=== PATIENT | female | born 1955 | race Caucasian/White ===

== ENCOUNTER 2017-07-31 10:46 | Outpatient (CLI) | payer OTHER ==
--- NOTE | 2017-07-31 12:59 | Ultrasound Report ---
Procedure Date: 07/31/2017 Accession Number: [id number] / [id number] Procedure: US - Head or Neck Soft Tissue CPT Code: FULL RESULT: EXAM: Head or Neck Soft Tissue DATE: 07/31/2017 11:23 AM CLINICAL HISTORY: FIRM ENLARGED LYMPH NODE TECHNIQUE: Ultrasound of the palpable abnormality in the left submandibular region. Real-time scanning, with asset protection representative static images obtained. COMPARISON: None FINDINGS: At the site of the palpable abnormality, there is a 1.3 x 0.7 x 0.4 cm submandibular lymph node. It demonstrates a normal fatty hilum. No suspicious findings are appreciated. IMPRESSION: Left submandibular lymph node, correlating with the palpable abnormality. It is normal in size, without suspicious findings.
== END 2017-07-31 10:47 | disposition home or self-care (01) ==
LOC: DI 10:46
PROVIDERS: ATTEND Naturopath
DX: R59.0 Localized enlarged lymph nodes (principal)
CPT/HCPCS: 76536

== ENCOUNTER 2018-03-12 15:47 | Emergency (ER) | payer OTHER ==
[2018-03-12 16:15] LABS: BILIRUBIN,URINE NEGATIVE (NEGATIVE); GLUCOSE, URINE (UA) NEGATIVE (NEGATIVE); KETONES,URINE (UA) 15 mg/dL (NEGATIVE); LEUKOCYTE ESTERASE, URINE MODERATE (NEGATIVE); NITRITE,URINE POSITIVE (NEGATIVE); OCCULT BLOOD,URINE SMALL (NEGATIVE); PROTEIN,URINE NEGATIVE (NEGATIVE); UROBILINOGEN,URINE 0.2 (NORMAL) E.U./dL (NORMAL)
[2018-03-12 16:16] LABS: CLARITY,URINE HAZY (CLEAR)
[2018-03-12 16:18] LABS: BASOPHILS # (AUTO) 0.1 10^3/uL (0.0-0.1); BASOPHILS % (AUTO) 0.7 %; EOSINOPHILS % (AUTO) 0.3 %; HGB - HEMOGLOBIN 12.7 g/dL (12.0-16.0); LYMPHOCYTES % (AUTO) 13.4 %; MEAN CORPUSCULAR HEMOGLOBIN 27.3 pg (27.0-31.0); MEAN CORPUSCULAR HGB CONC 34.2 g/dL (32.0-36.0); MEAN CORPUSCULAR VOLUME 79.6 fL (81.0-99.0); MONOCYTES # (AUTO) 1.2 10^3/uL (0.0-1.0); MONOCYTES % (AUTO) 7.9 %; NEUTROPHILS # (AUTO) 11.4 10^3/uL (1.5-6.6); NEUTROPHILS % (AUTO) 77.7 %; PLT - PLATELET COUNT 319 10^3/uL (130-450); RED BLOOD COUNT 4.65 10^6/uL (4.20-5.40); RED CELL DISTRIBUTION WIDTH 14.6 % (12.0-15.0); WHITE BLOOD COUNT 14.6 x10^3/uL (4.8-10.8)
[2018-03-12 16:21] LABS: BACTERIA,URINE Many /HPF (None Seen); RBC,URINE 0-5 /HPF (0-5); SQUAMOUS EPITHELIAL CELL,UR FEW Squamous (<= Few)
[2018-03-12 16:27] LABS: ALBUMIN 3.8 g/dL (3.2-5.5); ALBUMIN/GLOBULIN RATIO 0.9 (1.0-2.2); BILIRUBIN,TOTAL 0.5 mg/dL (0.2-1.0); CALCIUM 9.1 mg/dL (8.5-10.3); CREATININE 0.7 mg/dL (0.4-1.0)
[2018-03-12 16:38] LABS: INR 1.3 (0.8-1.2); PT - PROTHROMBIN TIME 14.9 secs (9.9-12.6)
--- NOTE | 2018-03-12 18:26 | ED Physician Documentation ---
PD HPI URI - Stated complaint Stated Complaint: SOA/COUGH - Chief complaint Chief Complaint: Fever - History obtained from History obtained from: Patient - History of Present Illness Timing - onset: How many days ago (3-5 days of cough and wheezing, worse breathing, fatigue.) Timing duration: Days (4-5) Timing details: Gradual onset, Still present Associated symptoms: Fever (today), Chills, Nasal congestion, Productive cough, Dyspnea. No: Sore throat, NVD Contributing factors: No: Sick contact, Travel Worsened by: Activity, Breathing Similar symptoms before: Diagnosis (asthma an bronchitis) Recently seen: Not recently seen Review of Systems Constitutional: reports: Fever, Chills, Myalgias Nose: reports: Congestion. denies: Rhinorrhea / runny nose Throat: denies: Sore throat Cardiac: denies: Chest pain / pressure, Palpitations, Pedal edema, Calf pain Respiratory: reports: Dyspnea, Cough, Wheezing GI: reports: Nausea. denies: Abdominal Pain, Vomiting, Diarrhea : denies: Dysuria, Frequency Skin: denies: Rash Musculoskeletal: reports: Back pain. denies: Neck pain Neurologic: reports: Generalized weakness. 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 HEENT: Tonsil/Adenoidectomy - Present Medications Home Medications: Ambulatory Orders Medication Instructions Recorded Confirmed Levothyroxine [Synthroid] 100 mcg PO QPM 03/12/18 03/14/18 Liothyronine [Cytomel] 20 mcg PO QPM 03/14/18 03/14/18 Levofloxacin [Levaquin] 750 mg PO DAILY #7 tablet 03/15/18 - Allergies Allergies/Adverse Reactions: Allergies Allergy/AdvReac Type Severity Reaction Status Date / Time Sulfa (Sulfonamide Allergy Unknown Verified 03/13/18 06:48 Antibiotics) nickel AdvReac Rash Verified 03/13/18 06:48 - Social History Does the pt smoke?: No Smoking Status: Never smoker Does the pt drink ETOH?: Yes Does the pt have substance abuse?: No - Family History Family history: reports: Non contributory - Immunizations Immunizations are current?: Yes PD ED PE NORMAL - Vitals Vital signs reviewed: Yes - General General: Alert and oriented X 3, Well developed/nourished, Other (appears ill and having wheezing with some prolonged exp phase. Able to talk sentences. ) - HEENT HEENT: Ears normal, Moist mucous membranes, Pharynx benign - Neck Neck: Supple, no meningeal sign, No adenopathy, No JVD - Cardiac Cardiac: RRR (tachy but regular), No murmur - Respiratory Respiratory: No respiratory distress. No: Clear bilaterally (diffuse wheezing without coarse sounds. ) - Abdomen Abdomen: Soft, Non tender - Female Female : Deferred - Rectal Rectal: Deferred - Back Back: No CVA TTP - Derm Derm: Normal color, No rash - Extremities Extremities: No deformity, No tenderness to palpate, Normal ROM s pain, No edema, No calf tenderness / cord - Neuro Neuro: Alert and oriented X 3, No motor deficit, Normal speech Results - Vitals Vitals: Oxygen O2 Source Room air - Labs Labs: Microbiology 03/12/18 16:09 Blood Culture - Preliminary Blood - Right Arm Escherichia Coli 03/12/18 16:12 Urine Culture - Final Urine,Clean Catch Escherichia Coli Laboratory Tests 03/12/18 03/12/18 03/12/18 16:09 16:09 16:09 WBC 14.6 H RBC 4.65 Hgb 12.7 Hct 37.0 MCV 79.6 L MCH 27.3 MCHC 34.2 RDW 14.6 Plt Count 319 MPV 7.0 L Neut # (Auto) 11.4 H Lymph # (Auto) 2.0 [place] # (Auto) 1.2 H Eos # (Auto) 0.0 Baso # (Auto) 0.1 Absolute Nucleated RBC 0.01 Nucleated RBC % 0.0 PT 14.9 H INR 1.3 H APTT 29.3 Sodium 130 L Potassium 3.5 Chloride 96 L Carbon Dioxide 24 Anion Gap 10.0 BUN 10 Creatinine 0.7 Estimated GFR (MDRD) 85 L Glucose 118 H Lactic Acid Calcium 9.1 Total Bilirubin 0.5 AST 23 ALT 31 Alkaline Phosphatase 75 Total Protein 8.0 Albumin 3.8 Globulin 4.2 Albumin/Globulin Ratio 0.9 L Lipase 29 Urine Color Urine Clarity Urine pH Ur Specific Beth[place] Urine Protein Urine Glucose (UA) Urine Ketones Urine Occult Blood Urine Nitrite Urine Bilirubin Urine Urobilinogen Ur Leukocyte Esterase Urine RBC Urine WBC Ur Squamous Epith Cells Urine Bacteria Ur Microscopic Review Urine Culture Comments 03/12/18 03/12/18 16:09 16:12 WBC RBC Hgb Hct MCV MCH MCHC RDW Plt Count MPV Neut # (Auto) Lymph # (Auto) [place] # (Auto) Eos # (Auto) Baso # (Auto) Absolute Nucleated RBC Nucleated RBC % PT INR APTT Sodium Potassium Chloride Carbon Dioxide Anion Gap BUN Creatinine Estimated GFR (MDRD) Glucose Lactic Acid 1.3 Calcium Total Bilirubin AST ALT Alkaline Phosphatase Total Protein Albumin Globulin Albumin/Globulin Ratio Lipase Urine Color YELLOW Urine Clarity HAZY Urine pH 6.0 Ur Specific [place] 1.015 Urine Protein NEGATIVE Urine Glucose (UA) NEGATIVE Urine Ketones 15 H Urine Occult Blood SMALL H Urine Nitrite POSITIVE H Urine Bilirubin NEGATIVE Urine Urobilinogen 0.2 (NORMAL) Ur Leukocyte Esterase MODERATE H Urine RBC 0-5 Urine WBC >25 H Ur Squamous Epith Cells FEW Squamous Urine Bacteria Many H Ur Microscopic Review INDICATED Urine Culture Comments INDICATED - Rads (name of study) chest xray Radiology: Prelim report reviewed (no infiltrates), EMP read contemporaneously, See rad report PD MEDICAL DECISION MAKING - ED course Complexity details: re-evaluated patient (still not feeling well but wheezing less after couple nebs, and sats/vitals are okay. Has bronchitis symptoms and wheezing. Consider viral vs bacterial but concern of bacterial given mostly cough symptoms and history of asthma. Also with UTI. Allergy to Sulfa. I would like to target the bronchitis with Doxy and should cover UTI as well, more than macrolide would. Improved breathing and vitals. I feel she is stable for discharge. ), considered differential (seems ill with mainly complaint of cough and wheezing, now fevers. ), d/w patient Departure - Departure Disposition: 01 Home, Self Care Clinical Impression: Exacerbation of asthma Bronchitis, acute Qualifiers: Bronchitis organism: unspecified organism Qualified Code(s): J20.9 - Acute bronchitis, unspecified UTI (urinary tract infection) Qualifiers: Urinary tract infection type: acute cystitis Hematuria presence: without hemat uria Qualified Code(s): N30.00 - Acute cystitis without hematuria Condition: Stable Record reviewed to determine appropriate education?: Yes Instructions: ED Bronchitis Asthmatic, ED UTI Cystitis Female Comments: Stay well-hydrated. Use albuterol inhaler 2-3 puffs 4 times a day and extra times as needed for cough and wheeze. Decadron steroid daily for 5 more days. Tessalon if needed for cough. Doxycycline antibiotic twice daily for 7-10 days. This is to treat the bronchitis and also to cover bladder infection. This should be adequate for both. Recheck if not improving over the next few days and return sooner if worsening. Tylenol if needed for fevers. Discharge Date/Time: 03/12/18 21:02
[2018-03-12] MEDS ORDERED: ALBUTEROL NEB 2.5 MG/3 ML INH STA ×2 (18:57→20:18)
[2018-03-12] MEDS ORDERED: DOXYCYCLINE 100 MG TABLET PO STA (18:58)
[2018-03-12] MEDS ORDERED: DEXAMETHASONE 10 MG/ML VIAL PO STA (18:58)
--- NOTE | 2018-03-12 19:07 | XRAY Report ---
Reason: cough Procedure Date: 03/12/2018 Accession Number: [id number] / [id number] Procedure: XR - Chest 1 View X-Ray CPT Code: 33573 FULL RESULT: EXAM: CHEST RADIOGRAPHY EXAM DATE: 03/12/2018 06:41 PM. CLINICAL HISTORY: Cough. COMPARISON: None. TECHNIQUE: 1 view. FINDINGS: Lungs/Pleura: No focal opacities evident. No pleural effusion. No pneumothorax. Mediastinum: Within exam limitations, the cardiomediastinal contour is normal. Other: Gastric lap band is not well seen. IMPRESSION: 1. No acute intrathoracic plain film abnormality. 2. Gastric lap band tubing is in place. The lap band itself is not well seen. RADIA
[2018-03-12 20:59] VITALS: BP 132/64
== END 2018-03-12 21:02 | disposition home or self-care (01) ==
LOC: ED 15:47
DX: J20.9 Acute bronchitis, unspecified (principal); N30.00 Acute cystitis without hematuria
CPT/HCPCS: 36415; 71045; 80053; 81001; 83605; 83690; 85025; 85610; 85730; 87040; 87077; 87086; 87181; 94640; 94664; 99283; 99284; A9270; 81003

== ENCOUNTER 2018-03-13 06:39 | Inpatient (IN) | payer OTHER ==
[2018-03-13] MEDS ORDERED: cefTRIAXone 1 GM in SODIUM CHLORIDE 0.9% MINIBAG 100 ML IV STA (07:21)
--- NOTE | 2018-03-13 07:23 | ED Physician Documentation ---
History of Present Illness - Stated complaint Stated Complaint: POSITIVE BLOOD CULTURE - Chief complaint Chief Complaint: General - History obtained from History obtained from: Patient - History of Present Illness Timing: How many days ago (6) - Additonal information Additional information: 62-year-old female with history of asthma and 3 failed procedures for urinary stress incontinence has developed cough congestion fever diaphoresis and weakness. She was seen in her doctor's office yesterday and sent to the hospital for evaluation. She was seen here in the emergency department by Dr. Coreas chest x-ray is obtained blood cultures and urinalysis. She did have urinary tract infection and no pneumonia on her chest x-ray. She is started on doxycycline today her blood cultures are positive she is been asked to come back to the hospital for admission to the hospital. Overnight the patient has remained weak and diaphoretic. Her fever is improved. Review of Systems Constitutional: reports: Fever, Chills, Myalgias, Fatigue Eyes: denies: Decreased vision Ears: denies: Ear pain Nose: reports: Congestion. denies: Rhinorrhea / runny nose Throat: denies: Sore throat Cardiac: denies: Chest pain / pressure, Palpitations Respiratory: reports: Dyspnea, Cough GI: denies: Abdominal Pain, Nausea, Vomiting : denies: Dysuria, Frequency Skin: denies: Rash Musculoskeletal: reports: Back pain. denies: Neck pain, Extremity pain Neurologic: reports: Generalized weakness. 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, Dilation and currettage HEENT: Tonsil/Adenoidectomy - Present Medications Home Medications: Ambulatory Orders Medication Instructions Recorded Confirmed Albuterol Sulf [Ventolin Hfa 2 - 3 puffs INH Q4HR PRN #1 inhaler 03/12/18 03/13/18 Inhaler] Benzonatate [Tessalon Perle] 100 - 200 mg PO TID PRN #30 capsule 03/12/18 03/13/18 Dexamethasone [Decadron] 4 mg PO DAILY #5 tablet 03/12/18 03/13/18 Doxycycline Hyclate 100 mg PO BID #20 capsule 03/12/18 03/13/18 Levothyroxine [Synthroid] 100 mcg PO QDAC 03/12/18 03/13/18 - Allergies Allergies/Adverse Reactions: Allergies Allergy/AdvReac Type Severity Reaction Status Date / Time Sulfa (Sulfonamide Allergy Unknown Verified 03/13/18 06:48 Antibiotics) nickel AdvReac Rash Verified 03/13/18 06:48 - Social History Does the pt smoke?: No Smoking Status: Never smoker Does the pt drink ETOH?: Yes Does the pt have substance abuse?: No - Immunizations Immunizations are current?: Yes - POLST Patient has POLST: No PD ED PE NORMAL - Vitals Vital signs reviewed: Yes (hypertensive ) - General General: Alert and oriented X 3, No acute distress, Well developed/nourished - HEENT HEENT: Atraumatic, PERRL, EOMI, Ears normal, Other (dry mucous membranes ) - Neck Neck: Supple, no meningeal sign, No bony TTP - Cardiac Cardiac: RRR, No murmur - Respiratory Respiratory: No respiratory distress, Clear bilaterally - Abdomen Abdomen: Soft, Non tender - Back Back: No CVA TTP, No spinal TTP - Derm Derm: Normal color, No rash, Other (Skin is clammy) - Extremities Extremities: No deformity, No edema - Neuro Neuro: Alert and oriented X 3, manager contract 2-12 intact, No motor deficit, No sensory deficit, Normal speech Eye Opening: Spontaneous Motor: Obeys Commands Verbal: Oriented GCS Score: 15 - Psych Psych: Normal mood, Normal affect Results - Vitals Vitals: Vital Signs - 24 hr 03/13/18 03/13/18 06:44 07:25 Temperature 36.4 C L Heart Rate 88 77 Respiratory 16 20 Rate Blood Pressure 145/87 H 126/76 O2 Saturation 98 95 Oxygen O2 Source Room air - Labs Labs: Laboratory Tests 03/13/18 03/13/18 03/13/18 07:13 07:13 07:13 WBC 12.3 H RBC 4.51 Hgb 12.8 Hct 36.5 L MCV 80.9 L MCH 28.3 MCHC 35.0 RDW 14.1 Plt Count 298 MPV 7.0 L Neut # (Auto) 10.6 H Lymph # (Auto) 1.2 L Gregory # (Auto) 0.5 Eos # (Auto) 0.0 Baso # (Auto) 0.1 Absolute Nucleated RBC 0.00 Nucleated RBC % 0.0 Sodium 139 Potassium 3.7 Chloride 106 Carbon Dioxide 23 Anion Gap 10.0 BUN 15 Creatinine 0.5 Estimated GFR (MDRD) 125 Glucose 250 H Lactic Acid 1.6 Calcium 9.7 Total Bilirubin 0.2 AST 21 ALT 31 Alkaline Phosphatase 74 Total Protein 8.0 Albumin 3.6 Globulin 4.4 H Albumin/Globulin Ratio 0.8 L Lipase 30 Procedures - IVC sono (time) 07 Bedside IVC sono: IVC measures (cm) (1.18), IVC collapsed c insp (cm) (complete), Dehydration (est 1 liter deficit) PD MEDICAL DECISION MAKING - ED course Complexity details: reviewed old records, reviewed results, re-evaluated patient, considered differential, d/w patient, d/w family ED course: 62-year-old female with a history of asthma and 3 failed bladder procedures has urinary tract infection and gram-negative bacilli in her blood. She has had improvement in her cough but she has not had improvement in her diaphoresis despite improvement in the fever. She does feel weak and worn out. On interrogation of the inferior vena cava she is about 1 L deficit and fluids and she is administered a liter of saline and a gram of Rocephin. Departure - Departure Disposition: 66 [facility] DC/Xfer Clinical Impression: UTI (urinary tract infection) Qualifiers: Urinary tract infection type: acute cystitis Hematuria presence: without hematuria Qualified Code(s): N30.00 - Acute cystitis without hematuria Sepsis Qualifiers: Sepsis type: sepsis due to unspecified organism Qualified Code(s): A41.9 - Sepsis, unspecified organism
[2018-03-13 07:24] LABS: BASOPHILS # (AUTO) 0.1 10^3/uL (0.0-0.1); BASOPHILS % (AUTO) 0.5 %; HGB - HEMOGLOBIN 12.8 g/dL (12.0-16.0); LYMPHOCYTES # (AUTO) 1.2 10^3/uL (1.5-3.5); LYMPHOCYTES % (AUTO) 9.8 %; MEAN CORPUSCULAR HEMOGLOBIN 28.3 pg (27.0-31.0); MEAN CORPUSCULAR VOLUME 80.9 fL (81.0-99.0); MONOCYTES # (AUTO) 0.5 10^3/uL (0.0-1.0); MONOCYTES % (AUTO) 3.7 %; NEUTROPHILS # (AUTO) 10.6 10^3/uL (1.5-6.6); PLT - PLATELET COUNT 298 10^3/uL (130-450); RED BLOOD COUNT 4.51 10^6/uL (4.20-5.40); RED CELL DISTRIBUTION WIDTH 14.1 % (12.0-15.0); WHITE BLOOD COUNT 12.3 x10^3/uL (4.8-10.8)
[2018-03-13 07:36] LABS: ALBUMIN 3.6 g/dL (3.2-5.5); ALBUMIN/GLOBULIN RATIO 0.8 (1.0-2.2); BILIRUBIN,TOTAL 0.2 mg/dL (0.2-1.0); CALCIUM 9.7 mg/dL (8.5-10.3); CREATININE 0.5 mg/dL (0.4-1.0)
[2018-03-13] MEDS ORDERED: SODIUM CHLORIDE FLUSH 0.9% 10 ML SYRINGE IVP PRN (08:27)
[2018-03-13] MEDS ORDERED: ONDANSETRON ODT 4 MG TABLET TL PRN (08:27)
[2018-03-13] MEDS ORDERED: IBUPROFEN 400 MG TABLET PO PRN (08:27)
[2018-03-13] MEDS ORDERED: ACETAMINOPHEN 325 MG TABLET PO PRN (08:27)
[2018-03-13] MEDS ORDERED: ONDANSETRON 4 MG/2 ML VIAL IVP PRN (08:27)
[2018-03-13] MEDS ORDERED: BENZONATATE 100 MG CAPSULE PO PRN (08:29)
[2018-03-13] MEDS ORDERED: ALBUTEROL NEB 2.5 MG/3 ML INH PRN (08:30)
[2018-03-13] MEDS ORDERED: SODIUM CHLORIDE 0.9% 1,000 ML IV ONE (08:33)
[2018-03-13] MEDS ORDERED: cefTRIAXone 1 GM in SODIUM CHLORIDE 0.9% MINIBAG 100 ML IV ONE (10:00)
[2018-03-13] MEDS: methylPREDNISolone SUCCINATE 40 MG/ML VIAL IVP SCH ×3 (10:43→21:08)
[2018-03-13] MEDS: SODIUM CHLORIDE 0.9% 1,000 ML IV SCH ×2 (10:44→20:32)
[2018-03-13] MEDS: POLYETHYLENE GLYCOL 3350 17 GM PACKET PO SCH (10:44)
[2018-03-13] MEDS: SODIUM CHLORIDE FLUSH 0.9% 10 ML SYRINGE IVP SCH ×2 (10:44→21:08)
--- NOTE | 2018-03-13 13:37 | HISTORY & PHYSICAL EXAMINATION ---
Chief Complaint - Chief Complaint Chief Complaint: fever and cough with rigors History of Present Illness - Admitted From Admitted From:: Home/ER - History Obtained From Records Reviewed: [facility] History obtained from: Patient, son and Dr. Chauhan Exam Limitations: none - History of Present Illness HPI Comment/Other: She is a 62-year-old morbidly obese female whose major medical issues are that of hypothyroidism and mild psoriasis but no problems with high blood pressure, diabetes, heart or lung. She does have asthma but it is so mild that she does not take any medications on a regular basis. The only time she starts wheezing and coughing is when she gets infections. Something like a cold or bronchitis or a flare in a UTI. She is and has had bladder repair surgery 3 times for cystocele repair. She gets frequent urinary tract infections but as long she takes d-mannose on a regular basis she does fine. Unfortunately she ran out a few months ago. Around December she developed a dry spot on the back of her throat. It almost felt like she would swallow and water was not even getting to the back of it. It caused an intermittent sporadic cough that was nonproductive. There was no fever, chills, chest congestion, postnasal drip. She then developed eustachian tube dysfunction as described by left ear fullness, feeling like she was under water, and severe tinnitus. She was initially diagnosed as having a left otitis media, and referred to ENT. ENT stated she did not have an ear infection, and that her eustachian tube was normal. However her tinnitus was continuing to bother her, as well as intermittent left ear fullness and she was referred to neurology after an MRI was done. The patient says that there is nothing wrong with her ear, but her eustachian tube was opacified according to the neurologist. Then last week, on top of all the above symptoms, she developed severe chest co ngestion, coughing. Started wheezing. Her usual temperature is 96-97 degrees so when she gets to 99 degrees its a fever. She is also prone to syncope. She has had vasovagal syncope all of her life. If she does not eat or drink enough, and stands for too long (usually in the morning shower) she has she will faint. Her vision will start to change, she gets nauseated and diaphoretic and will pa ss out if she does not sit down. She did that earlier this week with all of the above symptoms. She was finally so miserable with fatigue that she saw her primary care provider on March 12 and he sent her to the emergency room. In the emergency room yesterday her temperature was 38.2. Heart rate 107. 98% saturation with a blood pressure of 124/92. She was wheezing coughing, white cell count was 14.6. She appeared to respond to steroid injection, albuterol, and was started on doxycycline for empiric treatment of bronchitis. There was also a UTI present with positive leukocyte esterace, red cells, white cells, epithelial cells and bacteria. She was having intermittent rigors, sweats, and was just miserable. After returning to home, she went to bed. Had to change her sheets in her clothes twice because of the sweats. She was just getting ready to drift off back to sleep this morning when the emergency room called her to let her know that her blood cultures were positive with a gram-negative bacilli. Her urine cultures were positive for E. coli and to come back. Today, she received IV fluids in the emergency room. She was no longer tachycardic. IV ceftriaxone given. And a liter of wide open IV fluids with 40 mg of solumedrol. Her temperature was 36 4. I am now seeing her in her room after transfer from the emergency room and she says she feels so much better. She is weak and tired but the cough is almost gone, and the rigors have dissipated. She denies hemoptysis, sputum production. There is no diarrhea, abdominal or GI complaints associated with this. No new body rashes. When of her granddaughters and 1 of her sons was ill in the last week with the same viral prodrome. History - Past Medical History Cardiovascular: reports: None Respiratory: reports: Asthma (never intubated and not on steroids, short acting dilator once a year or so) Neuro: reports: Migraines Endocrine/Autoimmune: reports: HyPOthyroidism, Other (Reyna's thyroiditis, with hypothyroidism) GI: reports: None MANAGER FORMS: reports: Other ( with 1 C section, 1 D&C, 1 conization, dropped bladder and 3 bladder surgeries) : reports: Chronic bladder infection HEENT: reports: Chronic hearing loss (high frequency), Other (recent tinnitus an d more hearing loss left side, MRI neg for acoustic neuroma, but left eustachian tube opacified) Psych: reports: None Musculoskeletal: reports: None, Chronic back pain (with diskectomy and 3 level fusion lumbar spine) Derm: reports: Psoriasis (elbows, ear) MRSA Hx?: No - Past Surgical History General: reports: Cholecystectomy, Gastric surgery (failed lap band done in [place] 2006) Ortho: reports: Spine surgery /MANAGER FORMS: reports: section, Dilation and currettage, Other (breast biopsy) HEENT: reports: Tonsil/Adenoidectomy - Family & Social History Family History Comment/Other: Mom at age 64. She had renal cell carcinoma that was resected and did not require treatment. A few years later it all came back with diffuse metastatic disease and she at 63. Dad at age 75 of heart attack. Although her parents have been for years, they were still very close and he was heartbroken after her . One sister who is healthy except osteoarthritis. 6 children. Obesity, one son with Graves' disease and autoimmune disease present. Living arrangement: At home Living Situation: Alone Social History Notes: She started smoking at the age of 14 and stopped smoking around the age of 38. She smoked at most 1 pack/day. She would stop smoking when she was . She has no history of alcohol abuse. No history of sexually transmitted diseases. No history of use of any recreational substance. She has been twice, but she has children with 2 different fathers. She does not have a significant other at this time. She identifies her son, Antonio, is the person that she speak to as designated power of civil litigation attorney. She has not done this legally but she wishes to identify him as the person responsible. He is the son with her today. 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 - POLST Patient has POLST: No POLST Status: Full Code Meds/Allgy - Home Medications Home Medications: Ambulatory Orders Medication Instructions Recorded Confirmed Albuterol Sulf [Ventolin Hfa 2 - 3 puffs INH Q4HR PRN #1 inhaler 03/12/18 03/13/18 Inhaler] Benzonatate [Tessalon Perle] 100 - 200 mg PO TID PRN #30 capsule 03/12/18 03/13/18 Dexamethasone [Decadron] 4 mg PO DAILY #5 tablet 03/12/18 03/13/18 Doxycycline Hyclate 100 mg PO BID #20 capsule 03/12/18 03/13/18 Levothyroxine [Synthroid] 100 mcg PO QDAC 03/12/18 03/13/18 - Allergies Allergies/Adverse Reactions: Allergies Allergy/AdvReac Type Severity Reaction Status Date / Time Sulfa (Sulfonamide Allergy Unknown Verified 03/13/18 06:48 Antibiotics) nickel AdvReac Rash Verified 03/13/18 06:48 Review of Systems - Constitutional Constitutional: reports: Fatigue, Fever, Chills, Malaise, Poor appetite, Night sweats, Other (All in the last 4-5 days) - Eyes Eyes: denies: Pain, Irritation, Amaurosis, Blurred vision, Spots in vision, Field loss, Vision loss - Ears, Nose & Throat Ears, Nose & Throat: reports: Ear pain, Hearing loss, Tinnitus, Vertigo, Other (In the last 2 months). denies: Nosebleeds, Nasal obstruction, Nasal congestion, Postnasal drainage, Dentures, Sore throat, Hoarseness - Cardiovascular Cariovascular: reports: Syncope (Vasovagal all of her life. Last episode was earlier this week when she started getting sick. Standing in the shower. It usually happens in the shower. She will been dehydrated and not eating very well, get up in the morning to shower and she will pass out. Associated with vision change, sensation that sound is coming from far away, things get dark and then completely white out and she faints. It will take 20 minutes to recover and then she feels normal.). denies: Irregular heart rate, Palpitations, Chest pain, Edema, Lightheadedness, Exertional dyspnea, Decr. exercise tolerance - Respiratory Respiratory: reports: Cough (Since December off and on, definitely worse this week), Wheezing (Once or twice a year. Associated with her asthma. Does not even have an inhaler at home.). denies: Sputum production, Snoring, Hemoptysis, Orthopnea, SOB at rest, SOB with exertion, Apnea, Stridor - Gastrointestinal Gastrointestinal: denies: Abdominal pain, Abdominal distention, Constipation, Diarrhea, Change in bowel habits, Rectal bleeding, Bloody stools - Genitourinary Genitourinary: reports: Dysuria, Frequency, Urgency, Incontinence, Other (All of her symptoms are associated with UTIs that she has had several in the past. Last UTI was a year ago. She was not aware that she had any symptoms with this current episode.) - Musculoskeletal Musculoskeletal: reports: Back pain. denies: Muscle pain, Muscle aches, Stiffness, Muscle weakness, Gout, Joint pain - Integumentary Integumentary: reports: Rash (Psoriasis at the elbows, and the skin of her ears. Where her eustachian tube is opacified she has a patch of psoriasis right over it.) - Neurological Neurological: denies: General weakness, Focal weakness, Headache, Dizziness, Numbness, Memory problems, Pre-existing deficit, Abnormal gait - Psychiatric Psychiatric: denies: Depression, Anxiety, Suicidal - Endocrine Endocrine: denies: Polyuria, Polydypsia, Polyphagia - Hematologic/Lymphatic Hematologic/Lymphatic: denies: Anemia, Bruising Prior Level of Functionality: She is completely independent and lives in her own home. She drives a car, does her own laundry, cooks for herself, grocery shops, pays her own bills, etc. She is still very close to her children. She has 1 daughter and 5 sons. She speaks to her daughter several times a week. Her son, Antonio, lives in [place] and she is very close to him. She does have one son who lives on her property. Exam - Vital Signs Reviewed Vital Signs: Yes Vital Signs: Vital Signs x48h Temp Pulse Pulse Resp BP BP Pulse Ox 03/13/18 12:23 36.9 C 90 18 121/52 L 95 03/13/18 09:02 36.5 C 64 16 96 03/13/18 08:58 36.5 C 64 16 131/74 H 96 03/13/18 08:57 69 18 131/74 H 99 03/13/18 07:25 77 20 126/76 95 03/13/18 06:44 36.4 C L 88 16 145/87 H 98 - Physical Exam General Appearance: positive: No acute distress, Alert, Other (Moderately overweight middle-aged female with son at the bedside. She gives me permission to have him at the bedside while I take her history and examined her. Alert, back to her baseline she feels. She feels so much better.) Eyes Bilateral: positive: PERRL, EOMI ENT: positive: Pharynx nml Neck: positive: No JVD. negative: Stiff neck, Carotid bruit Respiratory: positive: Chest non-tender. negative: Wheezes, Rales, Rhonchi Cardiovascular: positive: Regular rate & rhythm, No murmur. negative: Gallop/S4, Friction rub Peripheral Pulses: positive: 1+ Abdomen: positive: Non-tender, No organomegaly, Nml bowel sounds, No distention Skin: positive: Warm, Dry Extremities: positive: Full ROM, No pedal edema Neurologic/Psychiatric: positive: Oriented x3, CN's nml (2-12), Motor nml, Sensation nml Sepsis Event Note (H) - Evaluation Current Stage of Sepsis: Resolved (She met sepsis criteria yesterday. Today white cell count is still greater than 12 but no fever, no tachycardia.) - Sepsis Criteria Sepsis Criteria: Recorded Temperature greater than 38.3C or Less than 36C, Recorded Heart Rate greater than 90 bpm, WBC count greater than 12,000 or less than 4000 Conclusion/Plan - Problem List (1) Sepsis secondary to UTI Conclusion/Plan: She met sepsis criteria yesterday. She had fever, tachycardia, elevated white cell count and a source of infection from urine. With antibiotics yesterday, IV fluids today, and new antibiotics today, her sepsis has resolved. She now remains a patient with bacteremia, and a urinary tract infection that needs to be treated. Lactic acid is normal, white cell count on his way down. No further fever. (2) E coli bacteremia Conclusion/Plan: From a UTI. She will be treated with IV Rocephin. Will adjust antibiotics on the basis of sensitivities. Since source is identified, she does not need 10 days of IV antibiotic therapy and can be sent home with an antibiotic that has good tissue penetration such as Levaquin. That will depend on the sensitivities we find. Repeat blood cultures have been done today. We will follow through on those. Continue to monitor for fever, white cell count. (3) Bronchitis, acute Conclusion/Plan: With acute exacerbation of asthma. Between yesterday and today she is received steroids, a dose of antibiotics, and today's treatment has also improved her tremendously. On current examination there is no wheezing. No increased respiratory effort. No hypoxia. Plan: Continue IV steroids for 3 more doses only Albuterol as needed Qualifiers: Bronchitis organism: unspecified organism Qualified Code(s): J20.9 - Acute bronchitis, unspecified (4) Full code status Conclusion/Plan: Advance care planning discussion performed. Please see dictation under separate note. - Lab Results Lab results reviewed: Yes Fish Bones: 03/13/18 07:13 03/13/18 07:13 Other Lab Results: Preliminary blood culture from March 12 ER encounter has gram-negative bacilli, positive for E. coli with conventional CARON's to follow. E. coli seen on urinary culture with sensitivities to follow. - Diagnostic Imaging Results Diagnostic Imaging Results: positive: Final report reviewed (Chest x-ray from March 12 has no acute infiltrate. Chest x-ray not to be repeated today.) Core Measures - Anticipated LOS I expect patient to be DC'd or transferred within 96 hours.: Yes - DVT/VTE - Prophylaxis VTE/DVT Device ordered at admit?: Yes
--- NOTE | 2018-03-13 15:25 | ADVANCE CARE PLANNING NOTE ---
Advance Care Planning - Date/Time Date: 03/13/18 Time: 15:11 - Purpose of encounter Text: Explore what she means by full CODE STATUS but to let her go if she is disabled - Parties in attendance Parties in attendance: Hospitalist, patient, her son who is a designated POA verbally - Decisional capacity Decisional capacity of: Patient is completely intact. She is completely independent, still working full-time. Her son has no disabilities. - Subjective/Patient's story Subjective/Patient's story: She is a 62-year-old female who is overweight and had a failed lap band surgery in [place] from 2006. 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 She is been and twice, and currently lives in her own home independently. One son lives on her property with his family. But she is very close to her son Antonio, who accompanies her today. He lives in [place]. They are getting ready to go to the [facility] in a week. She and Antonio are flying to [facility] and then from there to the [facility] to visit her daughter who is working in the [employer]. She regards herself as healthy. Has a strong suspicion of physicians and prefers to use a ND as her PCP. She has recently had problems with ringing in her left ear, a feeling of fullness and being "10 feet under water". She is exasperated because that led to a diagnosis of an ear infection in her PCP office, a referral to an ENT specialist who said she did not have ear infection. Because she continued to have tinnitus, left ear fullness, she then had an MRI looking for an acoustic neuroma and that was negative. She was then sent to a neurologist who asked if she was there to see him for dizziness and she said "no". The neurologist then went over her symptoms, showed her her MRI where she appears to have an opacified left eustachian tube. They attribute that to the psoriasis that she has on her ear and neck on that side of her body. She has been having a "dry tickle spot" in the back of her throat for over a month leading her to have an intermittent dry cough. But she did not feel ill. She denies symptoms of allergies. She then got sick with a very bad viral infection. She had coughing, chest congestion, wheezing. Her son and granddaughter had the same illness. She has a history of vasovagal syncope where if she gets too tired or dehydrated she will pass out. She passed out earlier this week. She finally saw her PCP because her temperature gone from 97 to 99. She is usually a temperature of 96-97 and 99 is a fever. Her PCP then referred her to the emergency room. In the emergency room she was identified as having acute bronchitis, a urinary tract infection. She was sent home on doxycycline, inhaler, and oral steroids to be tapered. She was called back to the emergency room because her blood cultures are positive. Since coming back, she is felt so much better after IV fluids and IV Rocephin and IV steroids. Her cough is almost completely gone. Now she just wants us to leave her alone to let her sleep. In going over history and physical we went over CODE STATUS and she says that she wants to be a full code. She has designated her son, Antonio, as her power of united states attorney. 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 She never wanted to end up like a resident that she took care of. That led to a castaneda discussion of the definition of what she wanted. The patient she took care of was a stroke patient who was completely dependent on care providers for feeding, dressing, changing her diaper, bathing her. Mrs. Cruz states she never wants to end up that way. That led to a conversation between she and her son about what that meant. If she has a reversible treatable illness that will result in a maintenance of her independence she wants everything done. If doctors have a reasonable expe ctation that she is going to be comatose, or have catastrophic loss of independence, to let her go. We then talked about that patient specifically. That unfortunate lady had a stroke, but did not . If that was her, did she want us to keep her alive? Her son protested and said that some stroke victims recover and he would want to give her the time to recover. So they then had a discussion about what it meant to recover. She states that if she had a stroke or any disabling illness that required her to be dependent on other people to take care of her, she did not want to live. They talked about 24-hour private hire care, or that her children could take turns taking care of her, and she was firmly opposed to this. So if she has a stroke or disabling disease that leaves her bedbound, unable to take care of herself, requiring other people to take care of her, we or her children can find care for her. If we have to place her in a facility temporarily that is fine. But if she develops something such as an infection, stroke, ND, to make her comfort measures only. We are not to treat her and we need to make her comfortable so she is not in pain or distress and let her go. She does not want to spend months or years of her life living that way. - Objective/Medical story Objective/Medical Story: She is a 62-year-old morbidly obese female whose major medical issues are that of hypothyroidism and mild psoriasis but no problems with high blood pressure, diabetes, heart or lung. She does have asthma but it is so mild that she does not take any medications on a regular basis. The only time she starts wheezing and coughing is when she gets infections. Something like a cold or bronchitis or a flare in a UTI. She is and has had bladder repair surgery 3 times for cystocele repair. She gets frequent urinary tract infections but as long she takes d-mannose on a regular basis she does fine. Unfortunately she ran out a few months ago. Around December she developed a dry spot on the back of her throat. It almost felt like she would swallow and water was not even getting to the back of it. It caused an intermittent sporadic cough that was nonproductive. There was no fever, chills, chest congestion, postnasal drip. She then developed eustachian tube dysfunction as described by left ear fullness, feeling like she was under water, and severe tinnitus. She was initially diagnosed as having a left otitis media, and referred to ENT. ENT stated she did not have an ear infection, and that her eustachian tube was normal. However her tinnitus was continuing to bother her, as well as intermittent left ear fullness and she was referred to neurology after an MRI was done. The patient says that there is nothing wrong with her ear, but her eustachian tube was opacified according to the neurologist. Then last week, on top of all the above symptoms, she developed severe chest congestion, coughing. Started wheezing. Her usual temperature is 96-97 degrees so when she gets to 99 degrees its a fever. She is also prone to syncope. She has had vasovagal syncope all of her life. If she does not eat or drink enough, and stands for too long (usually in the morning shower) she has she will faint. Her vision will start to change, she gets nauseated and diaphoretic and will pass out if she does not sit down. She did that earlier this week with all of the above symptoms. She was finally so miserable with fatigue that she saw her primary care provider on March 12 and he sent her to the emergency room. In the emergency room yesterday her temperature was 38.2. Heart rate 107. 98% saturation with a blood pressure of 124/92. She was wheezing coughing, white cell count was 14.6. She appeared to respond to steroid injection, albuterol, and was started on doxycycline for empiric treatment of bronchitis. There was also a UTI present with positive leukocyte esterace, red cells, white cells, epithelial cells and bacteria. She was having intermittent rigors, sweats, and was just miserable. After returning to home, she went to bed. Had to change her sheets in her clothes twice because of the sweats. She was just getting ready to drift off back to sleep this morning when the emergency room called her to let her know that her blood cultures were positive with a gram-negative bacilli. Her urine cultures were positive for E. coli and to come back. Today, she received IV fluids in the emergency room. She was no longer tachycardic. IV ceftriaxone given. And a liter of wide open IV fluids with 40 mg of solumedrol. Her temperature was 36 4. I am now seeing her in her room after transfer from the emergency room and she says she feels so much better. She is weak and tired but the cough is almost gone, and the rigors have dissipated. She denies hemoptysis, sputum production. There is no diarrhea, abdominal or GI complaints associated with this. No new body rashes. When of her granddaughters and 1 of her sons was ill in the last week with the same viral prodrome. 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: reports: Other ( with 1 C section, 1 D&C, 1 conization, dropped bladder and 3 bladder surgeries) : reports: Chronic bladder infection HEENT: reports: Chronic hearing loss (high frequency), Other (recent tinnitus and more hearing loss left side, MRI neg for acoustic neuroma, but left eustachian tube opacified) Psych: reports: None Musculoskeletal: reports: None, Chronic back pain (with diskectomy and 3 level fusion lumbar spine) Derm: reports: Psoriasis (elbows, ear) MRSA Hx?: No - Past Surgical History General: reports: Cholecystectomy, Gastric surgery (failed lap band done in [place] 2006) Ortho: reports: Spine surgery /ACCOUNTING ANALYST: reports: section, Dilation and currettage, Other (breast biopsy) HEENT: reports: Tonsil/Adenoidectomy - Family & Social History Family History Comment/Other: Mom at age 64. She had renal cell carcinoma that was resected and did not require treatment. A few years later it all came back with diffuse metastatic disease and she at 63. Dad at age 75 of heart attack. Although her parents have been for years, they were still very close and he was heartbroken after her . One sister who is healthy except osteoarthritis. 6 children. Obesity, one son with Graves' disease and autoimmune disease present. Living arrangement: At home Living Situation: Alone Social History Notes: She started smoking at the age of 14 and stopped smoking around the age of 38. She smoked at most 1 pack/day. She would stop smoking when she was . She has no history of alcohol abuse. No history of sexually transmitted diseases. No history of use of any recreational substance. She has been twice, but she has children with 2 different fathers. She does not have a significant other at this time. She identifies her son, Antonio, is the person that she speak to as designated power of united states attorney. She has not done this legally but she wishes to identify him as the person responsible. He is the son with her today. 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 - Goals of Care Goals of care determinations: As stated many times in this conversation, she wants to maintain complete independence and be able to take care of herself. It does not matter if she is in her own home, an assisted living facility, but she wants to maintain independence with regards to feeding herself and bathing herself. She does not want 24-hour care for her children taking care of her if she becomes disabled. Her goal is to be independent up until that time and if she is no longer independent to let her go and make her comfortable in her distress. - Plan Plan: At this time there is no change in our plastic move forward with treating her for her sepsis. She is to receive IV antibiotics, full treatment and if that means going to the ICU with pressors, etc. she wants that. I anticipate discharge in the next 2-3 days. I have encouraged her to please get up out of bed and ambulate in the room to maintain strength 10-minute discussion was held on DVT prophylaxis alone as she flies 12 hours to [facility] and then on to the [facility] especially in view of the fact that she has been sick with his cold and a UTI. On her wishes for a full CODE STATUS at this time, with transition to DO NOT RESUSCITATE only if the above conditions are met. - Code Status Code Status: Attempt Resuscitation - Time Spent on Advance Care Planning Time spent on advance care plannin minutes
[2018-03-14] MEDS: SODIUM CHLORIDE FLUSH 0.9% 10 ML SYRINGE IVP SCH ×4 (00:51→23:44)
[2018-03-14] MEDS: methylPREDNISolone SUCCINATE 40 MG/ML VIAL IVP SCH (06:24)
[2018-03-14 06:27] LABS: BASOPHILS % (AUTO) 0.1 %; HGB - HEMOGLOBIN 11.2 g/dL (12.0-16.0); LYMPHOCYTES # (AUTO) 1.6 10^3/uL (1.5-3.5); LYMPHOCYTES % (AUTO) 8.1 %; MEAN CORPUSCULAR HEMOGLOBIN 27.2 pg (27.0-31.0); MEAN CORPUSCULAR HGB CONC 33.4 g/dL (32.0-36.0); MEAN CORPUSCULAR VOLUME 81.4 fL (81.0-99.0); MEAN PLATELET VOLUME 7.3 fL (7.9-10.8); MONOCYTES # (AUTO) 0.9 10^3/uL (0.0-1.0); MONOCYTES % (AUTO) 4.3 %; NEUTROPHILS # (AUTO) 17.6 10^3/uL (1.5-6.6); NEUTROPHILS % (AUTO) 87.5 %; PLT - PLATELET COUNT 327 10^3/uL (130-450); RED BLOOD COUNT 4.13 10^6/uL (4.20-5.40); RED CELL DISTRIBUTION WIDTH 14.6 % (12.0-15.0); WHITE BLOOD COUNT 20.2 x10^3/uL (4.8-10.8)
[2018-03-14 06:36] LABS: CALCIUM 9.3 mg/dL (8.5-10.3); CREATININE 0.6 mg/dL (0.4-1.0)
[2018-03-14] MEDS ORDERED: ZOLPIDEM 5 MG TABLET PO PRN (06:54)
[2018-03-14] MEDS ORDERED: LEVOTHYROXINE 100 MCG TABLET PO SCH ×2 (07:00→21:00)
--- NOTE | 2018-03-14 07:57 | PROVIDER PROGRESS NOTE ---
Subjective - Prog Note Date Prog Note Date: 03/14/18 Prog Note Time: 16:30 - Subjective Subjective: doing well, feels great, had a shower. Current Medications - Current Medications Current Medications: Active Medications Acetaminophen (Tylenol) 650 mg PO Q4HR PRN PRN Reason: Pain 1 to 4 Albuterol () 2.5 mg INH RTQ4H PRN PRN Reason: Wheezing Benzonatate (Tessalon) 100 mg PO QID PRN PRN Reason: Cough Last Admin: 03/14/18 06:28 Dose: 100 mg Ceftriaxone Sodium 2 gm/ (Sodium Chloride) 100 mls @ 200 mls/hr IV DAILY REPLACED BY [facility] Ibuprofen (Motrin) 400 mg PO Q4HR PRN PRN Reason: Pain 1 to 4 Levothyroxine Sodium (Synthroid) 100 mcg PO QPM REPLACED BY [facility] Ondansetron HCl (Zofran Inj) 4 mg IVP Q6HR PRN PRN Reason: Nausea / Vomiting Ondansetron HCl (Zofran Odt) 4 mg TL Q6HR PRN PRN Reason: Nausea / Vomiting Polyethylene Glycol (Miralax) 17 gm PO DAILY REPLACED BY [facility] Last Admin: 03/13/18 10:44 Dose: Not Given Sodium Chloride (Normal Saline Flush 0.9%) 10 ml IVP PRN PRN PRN Reason: NEEDED PER PROVIDER ORDERS Sodium Chloride (Normal Saline Flush 0.9%) 10 ml IVP 0100,0900,1700 REPLACED BY [facility] Last Admin: 03/14/18 00:51 Dose: Not Given Zolpidem Tartrate (Ambien) 5 mg PO QPM PRN PRN Reason: Insomnia Levothyroxine [Synthroid] 100 mcg PO QPM 03/12/18 Liothyronine [Cytomel] 20 mcg PO QPM 03/14/18 Objective - Vital Signs/Intake & Output Reviewed Vital Signs: Yes Vital Signs: Vital Signs x48h Temp Pulse Resp BP Pulse Ox 03/14/18 07:47 36.6 C 78 18 132/65 H 97 03/14/18 00:00 36.6 C 71 18 118/54 L 96 Intake & Output: Intake & Output 03/11/18 03/12/18 03/13/18 03/14/18 23:59 23:59 23:59 23:59 Intake Total 2358.333 450 Balance 2358.333 450 - Objective General Appearance: positive: No acute distress, Alert Eyes Bilateral: positive: PERRL, EOMI ENT: positive: Pharynx nml Neck: positive: No JVD. negative: Stiff neck, Carotid bruit Respiratory: positive: Chest non-tender, No respiratory distress. negative: Wheezes, Rales, Rhonchi Cardiovascular: positive: Regular rate & rhythm. negative: Systolic murmur, Gallop/S4, Friction rub Abdomen: positive: Non-tender, No organomegaly, Nml bowel sounds, No distention Skin: positive: Warm, Dry Extremities: positive: Full ROM, No pedal edema Neurologic/Psychiatric: positive: Oriented x3, CN's nml (2-12), Motor nml - Lab Results Fish Bones: 03/14/18 06:07 03/14/18 06:07 Other Labs: Lab Results x24hrs 03/14/18 03/14/18 Range/Units 06:07 06:07 WBC 20.2 H (4.8-10.8) x10^3/uL RBC 4.13 L (4.20-5.40) 10^6/uL Hgb 11.2 L (12.0-16.0) g/dL Hct 33.6 L (37.0-47.0) % MCV 81.4 (81.0-99.0) fL MCH 27.2 (27.0-31.0) pg MCHC 33.4 (32.0-36.0) g/dL RDW 14.6 (12.0-15.0) % Plt Count 327 (130-450) 10^3/uL MPV 7.3 L (7.9-10.8) fL Neut # (Auto) 17.6 H (1.5-6.6) 10^3/uL Lymph # (Auto) 1.6 (1.5-3.5) 10^3/uL [place] # (Auto) 0.9 (0.0-1.0) 10^3/uL Eos # (Auto) 0.0 (0.0-0.7) 10^3/uL Baso # (Auto) 0.0 (0.0-0.1) 10^3/uL Absolute Nucleated RBC 0.01 x10^3/uL Nucleated RBC % 0.0 /100WBC Sodium 143 (135-145) mmol/L Potassium 4.0 (3.5-5.0) mmol/L Chloride 109 (101-111) mmol/L Carbon Dioxide 24 (21-32) mmol/L Anion Gap 10.0 (6-13) BUN 16 (6-20) mg/dL Creatinine 0.6 (0.4-1.0) mg/dL Estimated GFR (MDRD) 101 (>89) Glucose 170 H (70-100) mg/dL Calcium 9.3 (8.5-10.3) mg/dL ABX Reporting Has patient been on IV antibiotics over the past 48 hours?: Yes Sepsis Event Note (H) - Evaluation Current Stage of Sepsis: Resolved (She met sepsis criteria yesterday. Today white cell count is still greater than 12 but no fever, no tachycardia.) - Sepsis Criteria Sepsis Criteria: Recorded Temperature greater than 38.3C or Less than 36C, Re corded Heart Rate greater than 90 bpm, WBC count greater than 12,000 or less than 4000 Assessment/Plan - Problem List (1) Sepsis secondary to UTI Impression: She met sepsis criteria 03/12. She had fever, tachycardia, elevated white cell count and a source of infection from urine. With antibiotics yesterday, IV fluids 03/13, and new antibiotics 03/13, her sepsis has resolved. She now remains a patient with bacteremia, and a urinary tract infection that needs to be treated. Lactic acid is normal, white cell count on its way down. No further fever. (2) E coli bacteremia Conclusion/Plan: From a UTI. She will be treated with IV Rocephin. Will adjust antibiotics on the basis of sensitivities. Since source is identified, she does not need 10 days of IV antibiotic therapy and can be sent home with an antibiotic that has good tissue penetration such as Levaquin. That will depend on the sensitivities we find. Repeat blood cultures have been done 03/13 and those have been reported as negative at 24 hours. Continue to monitor for fever, white cell count. Paln discharge in am. (3) Bronchitis, acute Conclusion/Plan: With acute exacerbation of asthma. Between 03/12 and 03/13 she has received steroids, a dose of antibiotics, and 03/13 treatment has also improved her tremendously. On current examination there was no further wheezing, no increased respiratory effort, no hypoxia yesterday. Today stable as well. Plan: Continued IV steroids for 3 more doses only with last dose 06:25 this morning. Albuterol as needed Qualifiers: Bronchitis organism: unspecified organism Qualified Code(s): J20.9 - Acute bronchitis, unspecified (4) Elevated WBC Conclusion/Plan: She is on steroids and I feel this is demargination from that. She no longer has a fever, feels much better, repeat blood cultures negative, no longer tachycardic. Steroids to b stopped today.
[2018-03-14] MEDS: POLYETHYLENE GLYCOL 3350 17 GM PACKET PO SCH (08:54)
[2018-03-14] MEDS ORDERED: cefTRIAXone 2 GM in SODIUM CHLORIDE 0.9% MINIBAG 100 ML IV SCH (09:00)
[2018-03-14] MEDS ORDERED: LIOTHYRONINE 5 MCG TABLET PO SCH (21:00)
[2018-03-15 05:26] LABS: BASOPHILS % (AUTO) 0.3 %; EOSINOPHILS % (AUTO) 0.1 %; MEAN CORPUSCULAR HEMOGLOBIN 27.5 pg (27.0-31.0); MEAN CORPUSCULAR HGB CONC 33.3 g/dL (32.0-36.0); MEAN CORPUSCULAR VOLUME 82.6 fL (81.0-99.0); MEAN PLATELET VOLUME 7.3 fL (7.9-10.8); MONOCYTES % (AUTO) 6.5 %; NEUTROPHILS # (AUTO) 10.8 10^3/uL (1.5-6.6); NEUTROPHILS % (AUTO) 68.1 %; PLT - PLATELET COUNT 323 10^3/uL (130-450); RED BLOOD COUNT 3.99 10^6/uL (4.20-5.40); RED CELL DISTRIBUTION WIDTH 14.5 % (12.0-15.0); WHITE BLOOD COUNT 15.8 x10^3/uL (4.8-10.8)
[2018-03-15 05:36] LABS: CALCIUM 8.9 mg/dL (8.5-10.3); CREATININE 0.6 mg/dL (0.4-1.0)
--- NOTE | 2018-03-15 06:52 | Discharge Plan ---
Discharge Plan Disposition: Home, Self Care Condition: Good Prescriptions: Levofloxacin [Levaquin] 750 mg PO DAILY #7 tablet Diet: Regular Activity Restrictions: Activity as Tolerated Shower Restrictions: No Driving Restrictions: No Additional Instructions or Follow Up instructions: You were asked to come back to the hospital March 13 after being seen in the emergency room on March 12 for fever, upper respiratory tract infection with coughing and wheezing. You were just miserable. You were treated with antibiotics and steroids for a urinary tract infection and for acute bronchitis and sent home. However, overnight, your blood cultures grew out E. coli which is a very serious gram-negative infection. We think the infection is because of a urinary tract infection. You have responded well to antibiotics that treat both upper respiratory and UTI. Your white cell count is still mildly elevated but that is from steroids that we used to treat your asthma. Otherwise your repeat blood cultures and all of the blood work is been negative and you have had no further fever. We think you are stable to be discharged on oral antibiotics for the next 7 days. Make sure you complete the antibiotic regimen since you had the E. coli going into your bloodstream. Also take a probiotic while you are on antibiotics. See your primary care provider, Dr. Ruvalcaba, before you leave for the [facility]. Make sure you take your inhaler with you in case her asthma flares up on the flight or while visiting her daughter in the [facility]. Remember the exercises I taught you for your leg to reduce your risk of blood clot on the long flight. Also take a 325 mg dose of aspirin. Just 1 tablet. This is the day you get on the flight. No Smoking: If you smoke, Please STOP! Call for help. Follow-up with: Tariq Ruvalcaba ND [Primary Care Provider] -
[2018-03-15 08:27] VITALS: BP 114/62
[2018-03-15] MEDS ORDERED: levoFLOXacin 250 MG TABLET PO SCH (09:00)
[2018-03-15] MEDS: SODIUM CHLORIDE FLUSH 0.9% 10 ML SYRINGE IVP SCH (09:01)
[2018-03-15] MEDS: POLYETHYLENE GLYCOL 3350 17 GM PACKET PO SCH (09:01)
--- NOTE | 2018-03-15 11:42 | DISCHARGE SUMMARY ---
Physician: Karina Chaudhary MD DATE OF ADMISSION: 03/12/2018 DATE OF DISCHARGE: 03/15/2018 DISCHARGE DIAGNOSES 1. Sepsis due to urinary tract infection. 2. Escherichia coli bacteremia. 3. Escherichia coli urinary tract infection. 4. Acute asthmatic bronchitis. 5. Hypothyroidism. DISCHARGE MEDICATIONS 1. Synthroid 100 mcg nightly. 2. Cytomel 20 mcg nightly. 3. Levaquin 750 mg p.o. daily #7. PRINCIPAL PROCEDURES: IV antibiotics. HISTORY OF PRESENT ILLNESS: She is a 62-year-old female who has had three bladder surgeries because of probable cystocele after five pregnancies. She has recurrent UTIs because of it, and is on D-mannose on a daily basis. Unfortunately, she ran out of her D-mannose a few months ago. She has been plagued by a postnasal drip type sensation with a tickle in the back of her throat since December. Dry nonproductive cough. She has been evaluated for left eustachian tube dysfunction and left eustachian tube opacification on MRI. About a week before admission, developed severe URI symptoms with cough, congestion. Was miserable. Seen in PCP office, who sent her to ER. She was identified as having a fever, elevated white cell count, tachycardia, acute bronchitis and a urinary tract infection, and sent home on doxycycline. Her blood cultures were positive, and she was asked to come back to the hospital. With this second go-around, her temperature was 36.4. Her white cell count was 12.3, and she was no longer tachycardic, not hypoxic, so no longer met the criteria of sepsis that she had met the day before. Her exam showed her to be flushed, miserable, with wheezing. A nonproductive continuous cough. HOSPITAL COURSE: Within a matter of hours, she has turned the corner tremendously. She was on IV antibiotics, IV steroids, nebulizers, and felt so much better. The rest of her stay, she remained unremarkable with regard to fever, hypoxia, or tachycardia. Her cultures were positive for E. coli the day before admission. Followup blood cultures were negative. As such, she was sent home for the completion of treatment of E. coli bacteremia. She needs to complete a total of 10 days. IV antibiotics were not necessary, since the source was identified and drug sensitivities to Levaquin would allow good tissue penetration for Levaquin. She is about to travel to the [facility] in the next week. She was instructed on the use of aspirin on the day of flight, leg exercises, ambulation, and plenty of fluids to prevent DVTs. She is asked to see her primary care provider in followup. She is resuming her usual thyroid medication. I also asked her to start a probiotic. PHYSICAL EXAMINATION VITAL SIGNS: At discharge, temperature was 36.6, pulse of 65, blood pressure 114/62, respirations 16, and she is 96% on room air. GENERAL: She is an alert, oriented, moderately overweight white female, 5 feet 2 inches tall, 89 kg. NECK: Supple. LUNGS: Clear. HEART: She has a regular rate and rhythm. ABDOMEN: Benign. She is sitting upright in her bed, and has been ambulating to the bathroom without any assist. She has no ataxia. Greater than 30 minutes was spent in coordinating discharge. TD: 03/15/2018 11:07 MARY
== END 2018-03-15 09:55 | disposition home or self-care (01) | DRG 872 ==
LOC: ED 06:39 → ICU 08:27 → MS2 09:12
PROVIDERS: ADMIT Specialist; ATTEND Specialist
DX: A41.51 Sepsis due to Escherichia coli [E. coli] (principal); N30.00 Acute cystitis without hematuria; J45.901 Unspecified asthma with (acute) exacerbation; N39.3 Stress incontinence (female) (male); G43.909 Migraine, unspecified, not intractable, without status migrainosus; Z90.49 Acquired absence of other specified parts of digestive tract; E06.3 Autoimmune thyroiditis; E66.01 Morbid (severe) obesity due to excess calories; Z68.35 Body mass index [BMI] 35.0-35.9, adult; L40.9 Psoriasis, unspecified; R55 Syncope and collapse; H91.90 Unspecified hearing loss, unspecified ear; G89.29 Other chronic pain; M54.9 Dorsalgia, unspecified; Z98.84 Bariatric surgery status; Z87.891 Personal history of nicotine dependence; Z88.2 Allergy status to sulfonamides
CPT/HCPCS: 36415; 80048; 80053; 83605; 83690; 85025; 87040; 96365; 99283; 99284

== ENCOUNTER 2018-05-02 10:58 | Outpatient (CLI) | payer OTHER ==
--- NOTE | 2018-05-03 10:13 | Ultrasound Report ---
Reason: HYPOTHYROID Procedure Date: 05/02/2018 Accession Number: [id number] / [id number] Procedure: US - Head or Neck Soft Tissue CPT Code: FULL RESULT: EXAM: THYROID ULTRASOUND EXAM DATE: 05/02/2018 12:24 PM. CLINICAL HISTORY: Hypothyroid. COMPARISON: HEAD OR NECK SOFT TISSUE 07/31/2017 10:58 AM. TECHNIQUE: Real-time sonographic imaging of the thyroid was performed by the fisher diver net. Multiple claim representative static images were saved for review. FINDINGS: THYROID GLAND: Right Lobe: 5.2 x 1.6 x 1.9 cm, volume 8.2 cc. Heterogeneous parenchyma. Right Lobe Nodules: 1. Heterogeneous predominantly solid 1 x 0.6 x 1 cm medial right mid thyroid nodule. No internal vascularity or microcalcifications. 2. 1.7 x 0.8 x 0.7 cm posterior mid right thyroid isoechoic nodule. No microcalcifications or vascularity. Left Lobe: 4.8 x 1.9 x 2.1 cm, volume 10 cc. Heterogeneous parenchyma. Left Lobe Nodules: 1.9 x 1 x 1.6 cm hyperechoic, vascular solid mid left thyroid nodule. No microcalcifications. Isthmus: 0.87 cm AP. Isthmic Nodules: 0.8 x 0.7 x 0.7 cm heavily calcified thyroid isthmus nodule. LYMPH NODES: No adenopathy demonstrated in the central or lateral compartment. OTHER: None. IMPRESSION: 1. Sonographic findings compatible with a multinodular thyroid goiter. 2. 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 3. No pathologic adenopathy identified. Management recommendations are based on 2015 [place] [employer] Management Guidelines for Adult Patients with Thyroid Nodules and Differentiated Thyroid Cancer. RADIA
== END 2018-05-02 10:59 | disposition home or self-care (01) ==
LOC: DI 10:58
PROVIDERS: ATTEND Naturopath
DX: E03.9 Hypothyroidism, unspecified (principal); E04.2 Nontoxic multinodular goiter
CPT/HCPCS: 76536

== ENCOUNTER 2020-03-28 07:00 | Outpatient (CLI) | payer MEDICARE, BC | END 2020-03-28 23:59 | disposition home or self-care (01) | LOC: LAB.S 07:00 | PROVIDERS: ATTEND Physician Assistant | DX: R05 Cough (principal); N89.8 Other specified noninflammatory disorders of vagina; N39.0 Urinary tract infection, site not specified; Z20.822 Contact with and (suspected) exposure to COVID-19 | CPT/HCPCS: 87086; U0004 ==

== ENCOUNTER 2021-01-14 08:00 | Outpatient (CLI) | payer MEDICARE, BC | END 2021-01-14 23:59 | disposition home or self-care (01) | LOC: LAB.N 08:00 | PROVIDERS: ATTEND Nurse Practitioner | DX: N39.0 Urinary tract infection, site not specified (principal) | CPT/HCPCS: 87086; 87181 ==

== ENCOUNTER 2021-01-21 08:00 | Outpatient (CLI) | payer MEDICARE, BC | END 2021-01-21 23:59 | LOC: LAB.N 08:00 | PROVIDERS: ATTEND Nurse Practitioner | DX: N39.0 Urinary tract infection, site not specified (principal) | CPT/HCPCS: 87086 ==

== ENCOUNTER 2023-01-15 07:00 | Outpatient (CLI) | payer MEDICARE, BC | END 2023-01-15 23:59 | disposition home or self-care (01) | LOC: LAB.S 07:00 | PROVIDERS: ATTEND Physician Assistant | DX: N39.0 Urinary tract infection, site not specified (principal) | CPT/HCPCS: 87077; 87086; 87181 ==

== ENCOUNTER 2023-08-17 15:12 | Outpatient (CLI) | payer MEDICARE, BC | END 2023-08-17 15:13 | disposition home or self-care (01) | LOC: LAB.S 15:12 | PROVIDERS: ATTEND Physician Assistant Medical | DX: N39.0 Urinary tract infection, site not specified (principal) | CPT/HCPCS: 87086 ==